=== PATIENT | female | born 1945 | race Caucasian/White ===

== ENCOUNTER 2021-12-24 19:32 | Inpatient (IN) | payer MEDICARE, OTHER ==
[~2021-12-24] VITALS: Ht 157.5 cm; Wt 89.4 kg
--- NOTE | 2021-12-24 19:53 | NUR ---
BIBPA FOR C/O FAILURE TO THRIVE AND NOT EATING X3 DAYS. PT AXO X0 BREATHING UNLABORED. CHANGED INTO GOWN AND PLACED ON MO NITOR AND V/S WNL. WAS AT BEDSIDE FOR EVAL.
--- NOTE | 2021-12-24 19:54 | NUR ---
XRAY AT BEDSIDE
--- NOTE | 2021-12-24 19:56 | NUR ---
20G IV LINE ESTABLISHED AT . BLOOD DRAWN AND SENT TO LAB.
[2021-12-24] MEDS ORDERED: IV NS 0.9% 1,000 ML BAG IV ONE (20:00)
[2021-12-24 20:16] LABS: BASOPHILS # (AUTO) 0.1 K/uL (0.0-0.2); BASOPHILS % (AUTO) 0.6 % (0.0-2.0); EOSINOPHILS % (AUTO) 0.1 % (0.0-6.0); HEMATOCRIT 48 % (33-45); HEMOGLOBIN 15.7 g/dL (11.5-14.8); LYMPHOCYTES # (AUTO) 2.5 K/uL (0.8-4.8); LYMPHOCYTES % (AUTO) 11.7 % (20.0-44.0); MEAN CORPUSCULAR HGB CONC 33 g/dl (31.0-36.0); MEAN CORPUSCULAR VOLUME 96 fL (82-100); MONOCYTES % (AUTO) 9.6 % (2.0-12.0); NEUTROPHILS # (AUTO) 16.3 K/uL (1.8-8.9); PLATELET COUNT (AUTO) 356 K/uL (150-450); RED BLOOD CELL COUNT(AUTO) 4.97 MIL/uL (4.0-5.2); WHITE BLOOD COUNT (AUTO) 20.9 K/uL (4.3-11.0)
--- NOTE | 2021-12-24 20:16 | NUR ---
URINE COLLECTED AND SENT TO LAB
[2021-12-24 20:28] LABS: CALCIUM, SERUM 8.8 mg/dL (8.5-10.1); CARBON DIOXIDE 28 mmol/L (21-32); CHLORIDE 112 mmol/L (98-107); CREATININE 0.9 mg/dL (0.6-1.3); GLUCOSE 150 mg/dL (74-106); SODIUM SERUM 152 mmol/L (136-145); UREA NITROGEN, BLOOD 26 mg/dL (7-18)
[2021-12-24 20:33] LABS: ALANINE AMINOTRANSFERASE 40 U/L (12-78); ALBUMIN 3.2 g/dL (3.4-5.0); ALKALINE PHOSPHATASE 129 U/L (46-116); ASPARTATE AMINOTRANSFERASE 40 U/L (15-37); BILIRUBIN,DIRECT 0.1 mg/dL (0.0-0.2); BILIRUBIN,TOTAL 0.4 mg/dL (0.2-1.0)
[2021-12-24 21:03] LABS: BILIRUBIN,URINE SMALL (NEGATIVE); COLOR,URINE YELLOW (YELLOW); LEUKOCYTE ESTERASE ,URINE NEGATIVE (NEGATIVE); NITRITE, URINE NEGATIVE (NEGATIVE); PH,URINE 5.5 (5.0-8.0); PROTEIN,URINE TRACE mg/dl (NEGATIVE); UGLUCOSE NEGATIVE (NEGATIVE); UROBILINOGEN,URINE 0.2 EU/dL (0.2)
--- NOTE | 2021-12-24 21:39 | NUR ---
CALLED NEELIMA PAGED YINKA VIVAS
[2021-12-24] MEDS ORDERED: CEFTRIAXONE 1GM BAG (ER ONLY) 50 ML IV ONE ×2 (21:57→22:00)
[2021-12-24 22:13] LABS: BACTERIA,URINE 1+ /HPF (None Seen); SQUAMOUS EPITHELIAL CELL,UR 21-50 /HPF (None Seen); WBC,URINE 0-2 /HPF (0-3)
--- NOTE | 2021-12-24 22:33 | NUR ---
REPORT GIVEN TO JUAN TOSCANO
--- NOTE | 2021-12-24 22:34 | NUR ---
PATIENT BEING TRANSFERRED TO [facility]
--- NOTE | 2021-12-24 22:40 | NUR ---
trouble lineman notes Received Pt from ER nurse. Pt arrived at the unit accompanied by Pt's son Dave ([phone]). Pt is non verbal and able to open eyes. On 1 L NC. No SOB. No S/S of distress noted. VS is stable. IV site at RFA # 20 is clean, intact and flushes easily. Skin assessment is done and performed. Pictures are taken and placed in Pt's chart. Pt's belonging is checked by HEATHER Mcknight and signed by Pt's son. Pt does not have any belonging. Safety precautions is maintained. Bed at low position, brakes locked, side rails upX3, hob elevated, bed alarm is on and call light is within reach. Will continue to monitor.
[2021-12-24 23:00] VITALS: BP 116/83
--- NOTE | 2021-12-24 23:38 | NUR ---
RN notes Called [facility] ([phone]) and spoke with Junior regarding covid vaccination status. Junior stated Pt is fully vaccination Moderna with booster. Pt also received PNA and flu vaccination.
[2021-12-25] VITALS: BP 119/68
[2021-12-25] MEDS ORDERED: ONDANSETRON HCL/PF 4 MG/2 ML VIAL IVP PRN (00:30)
[2021-12-25] MEDS ORDERED: NA PHOS,M-B/NA PHOS,DI-BA 1 EA ENEMA RC PRN (00:30)
[2021-12-25] MEDS ORDERED: ACETAMINOPHEN 325 MG TABLET PO PRN (00:30)
[2021-12-25] MEDS: SENNOSIDES 8.6 MG TABLET PO SCH ×2 (00:30→22:00)
[2021-12-25] MEDS ORDERED: Z GUARD REMEDY 4 OZ OINT TP PRN (00:30)
[2021-12-25] MEDS: POLYETHYLENE GLYCOL 3350 17 GM POWD.PACK PO SCH ×2 (00:30→22:00)
--- NOTE | 2021-12-25 00:53 | NUR ---
RN notes Held rachel and sarina. Pt is not following commands. Pt failed nursing bedside eval. High risk for aspiration. Charge nurse is aware and informed.
[2021-12-25] MEDS: IV LR 1000 ML 1,000 ML IV PRN ×2 (00:55→18:17)
[2021-12-25] MEDS ORDERED: DOXYCYCLINE 100 MG in IV D5W 100 ML IV ONE (01:00)
[2021-12-25] MEDS ORDERED: DOXYCYCLINE 100 MG VIAL ONE (01:21)
--- NOTE | 2021-12-25 01:44 | NUR ---
RN notes Received doxycycline 100mg from [facility]. JUAN Garcia.
[2021-12-25 06:36] LABS: BASOPHILS # (AUTO) 0.1 K/uL (0.0-0.2); BASOPHILS % (AUTO) 0.3 % (0.0-2.0); EOSINOPHILS % (AUTO) 0.2 % (0.0-6.0); HEMATOCRIT 46 % (33-45); HEMOGLOBIN 15.1 g/dL (11.5-14.8); LYMPHOCYTES # (AUTO) 2.7 K/uL (0.8-4.8); LYMPHOCYTES % (AUTO) 13.8 % (20.0-44.0); MEAN CORPUSCULAR HGB CONC 33 g/dl (31.0-36.0); MEAN CORPUSCULAR VOLUME 97 fL (82-100); MONOCYTES # (AUTO) 1.7 K/uL (0.1-1.30); MONOCYTES % (AUTO) 8.7 % (2.0-12.0); NEUTROPHILS # (AUTO) 15.1 K/uL (1.8-8.9); PLATELET COUNT (AUTO) 293 K/uL (150-450); RED BLOOD CELL COUNT(AUTO) 4.78 MIL/uL (4.0-5.2); WHITE BLOOD COUNT (AUTO) 19.6 K/uL (4.3-11.0)
--- NOTE | 2021-12-25 06:37 | NUR ---
RN closing notes Pt is resting in bed comfortably. Pt is alert and orientedX1. On 1 L NC. No SOB. No S/S of distress noted. VS is stable. IV site at RFA # 20 is clean, intact and infusing well LR @ 80 ml/hr. Routine meds were given as ordered. Kept Pt clean, dry and comfortable. All needs met and attended. Safety precautions is maintained. Bed at low position, brakes locked, side rails upX3, hob elevated, bed alarm is on and call light is within reach. Will endorse to am nurse for SHANE.
[2021-12-25 06:43] LABS: CALCIUM, SERUM 8.5 mg/dL (8.5-10.1); CREATININE 0.8 mg/dL (0.6-1.3); MAGNESIUM 2.7 mg/dL (1.8-2.4); POTASSIUM 3.7 mmol/L (3.5-5.1)
[2021-12-25 06:54] LABS: THYROID STIMULATING HORMONE 84.61 uIU/mL (0.358-3.74)
--- NOTE | 2021-12-25 07:43 | NUR ---
OPENING NOTE RECIEVED PATIENT REPORT FROM NIGHTSHIFT RN. PATIENT CURRENTLY IN BED ASLEEP BREATHING EVENLY AND UNLABORED. ON 1 LITER OF OXYGEN VIA NASAL CANULA SATURATING AT 97%. DIAPER FOR INCONTINENCE NOTED. WOUNDS ARE DOCUMENTED AND FILED IN PATIENTS PHYSICAL CHART. PER NIGHTSHIFT RN THE PATIENT IS "CLENCHING HER JAW" AND NOT ALLOWING ANY PO MEDICATIONS TO BE ADMINISTERED. IN ADDITION THE PATIENT "HAS NO GAG REFLEX", PER NIGHTSHIFT RN. IV ACCESS NOTED ON RIGHT FOREARM 20 GAUGE FLUSHING EASILY WITH NO RESISTANCE. SAFETY MEASURES IN PLACE, BED IN LOWEST POSITION, CALL LIGHT WITHIN REACH, SIDE RAILS UP, FALL RISK BRACELET ON, CALL LIGHT WITHIN REACH. WILL CONTINUE PLAN OF CARE AND ANTICIPATE NEEDS.
[2021-12-25 08:00] VITALS: BP 107/64
[2021-12-25] MEDS ORDERED: FAMO20TA8 PO (08:31)
[2021-12-25] MEDS ORDERED: THYR120T2 PO (08:31)
[2021-12-25] MEDS ORDERED: SIMV-46 PO (08:31)
[2021-12-25] MEDS: ENOXAPARIN SODIUM 40 MG/0.4 ML DISP.SYRIN SQ SCH (08:39)
[2021-12-25] MEDS: ASPIRIN EC 81 MG TABLET.DR PO SCH (08:47)
[2021-12-25] MEDS ORDERED: MELA5TAB PO (09:11)
[2021-12-25] MEDS ORDERED: SENN-175 PO (09:11)
[2021-12-25] MEDS ORDERED: POLY17PO4 PO (09:11)
[2021-12-25] MEDS: DOXYCYCLINE 100 MG in IV D5W 100 ML IV SCH ×2 (11:15→21:23)
[2021-12-25 16:00] VITALS: BP 114/68
--- NOTE | 2021-12-25 18:56 | NUR ---
CLOSING NOTE PATIENT CURRENTLY IN BED ASLEEP BREATHING EVENLY AND UNLABORED. ON 1 LITER OF OXYGEN VIA NASAL CANULA SATURATING AT 97%. DIAPER FOR INCONTINENCE NOTED. WOUNDS ARE DOCUMENTED AND FILED IN PATIENTS PHYSICAL CHART. IV ACCESS NOTED ON RIGHT FOREARM 20 GAUGE FLUSHING EASILY WITH NO RESISTANCE CURRENTLY RUNNING LACTATED RINGERS SOLUTION. SAFETY MEASURES IN PLACE, BED IN LOWEST POSITION, CALL LIGHT WITHIN REACH, SIDE RAILS UP, FALL RISK BRACELET ON, CALL LIGHT WITHIN REACH. WILL ENDORSE TO NIGHTSHIFT RN FOR CONTINUATION OF CARE.
--- NOTE | 2021-12-25 19:59 | NUR ---
RN OPENING NOTE PATIENT ASLEEP IN BED. A/OX1. NO S/S OF DISTRESS, BREATHING W/O DIFFICULTY ON 1L NC. JUVE #20 INTACT AND PATENT LR @80ML/HR. SAFETY MEASURES IN PLACE: BED LOCKED, AT LOWEST POSITION, RAILS UP X3, CALL NAVARRETE WITHIN REACH. WILL CONTINUE TO MONITOR PATIENT.
[2021-12-25 20:00] VITALS: BP 113/71
[2021-12-25] MEDS: CEFTRIAXONE 1 G in IV D5W 50 ML IV SCH (22:32)
--- NOTE | 2021-12-26 06:46 | NUR ---
RN CLOSING NOTE PATIENT AWAKE IN BED. A/OX2. NO S/S OF DISTRESS, BREATHING W/O DIFFICULTY ON 1L NC. RFA #20 INTACT AND PATENT W/ LR 80 ML/HR. SAFETY MEASURES IN PLACE: BED LOCKED, AT LOWEST POSITION, RAILS UP X3, CALL NAVARRETE WITHIN REACH. WILL ENDORSE TO NEXT SHIFT FOR SHANE.
[2021-12-26] MEDS: IV LR 1000 ML 1,000 ML IV PRN ×2 (06:53→21:42)
[2021-12-26 07:52] LABS: BASOPHILS # (AUTO) 0.1 K/uL (0.0-0.2); BASOPHILS % (AUTO) 0.4 % (0.0-2.0); EOSINOPHILS % (AUTO) 1.7 % (0.0-6.0); HEMATOCRIT 41 % (33-45); HEMOGLOBIN 13.3 g/dL (11.5-14.8); LYMPHOCYTES # (AUTO) 2.7 K/uL (0.8-4.8); LYMPHOCYTES % (AUTO) 19.4 % (20.0-44.0); MEAN CORPUSCULAR HGB CONC 33 g/dl (31.0-36.0); MEAN CORPUSCULAR VOLUME 96 fL (82-100); MONOCYTES # (AUTO) 1.1 K/uL (0.1-1.30); MONOCYTES % (AUTO) 8.1 % (2.0-12.0); NEUTROPHILS % (AUTO) 70.4 % (43.0-81.0); PLATELET COUNT (AUTO) 255 K/uL (150-450); RED BLOOD CELL COUNT(AUTO) 4.24 MIL/uL (4.0-5.2); WHITE BLOOD COUNT (AUTO) 14.2 K/uL (4.3-11.0)
--- NOTE | 2021-12-26 07:58 | NUR ---
MS RN OPENING NOTES RECEIVED PATIENT AWAKE IN BED. PATIENT IS A/OX1 , NON VERBAL. NO SOB NOTED. ON 1L NC. TOLERATING WELL. BREATHING EVEN AND UNLABORED.JUVE IV ACCESS #20 INTACT AND PATENT AND RUNNING LR @80ML/HR.ALL SAFETY MEASURES IN PLACE: BED LOCKED, AT LOWEST POSITION, RAILS UP X3, CALL NAVARRETE WITHIN REACH. WILL CONTINUE TO MONITOR PATIENT.
[2021-12-26 08:05] LABS: CALCIUM, SERUM 7.9 mg/dL (8.5-10.1); CREATININE 0.6 mg/dL (0.6-1.3); MAGNESIUM 2.5 mg/dL (1.8-2.4); POTASSIUM 3.5 mmol/L (3.5-5.1)
[2021-12-26] MEDS: ASPIRIN EC 81 MG TABLET.DR PO SCH (09:00)
[2021-12-26] MEDS: ENOXAPARIN SODIUM 40 MG/0.4 ML DISP.SYRIN SQ SCH (09:27)
[2021-12-26] MEDS: DOXYCYCLINE 100 MG in IV D5W 100 ML IV SCH ×2 (09:41→21:16)
[2021-12-26] MEDS ORDERED: NEUTRA PHOS 1 POWD.PACKET PO ONE (12:00)
[2021-12-26] MEDS: LEVOTHYROXINE INJ 100 MCG VIAL IV SCH (12:23)
--- NOTE | 2021-12-26 19:02 | NUR ---
MS RN CLOSING NOTES PATIENT AWAKE IN BED. PATIENT IS A/OX1 , NON VERBAL. FEW WORDS SPOKEN. SON AT HER BED SIDE.NO SOB NOTED. ON 1L NC. TOLERATING WELL. BREATHING EVEN AND UNLABORED. LEFT HAND IV G# 22 INTACT AND PATENT AND RUNNING LR @80ML/HR. ALL DUE MEDS GIVEN ORDERED. EXCEPT PO ASPIRIN FOR 0900 AM.SON AT HER BED SIDE. ORAL CARE GIVEN 3 TIMES. SON FED THE PATIENT WITH COUPLE OF SPOONS. LIQUID GIVEN WITH SMALL CUPS. TURN AND REPOSITION FOR SKIN MANAGEMENT. DVT PUMP AND BED PUMP ON AND WORKING. ALL SAFETY MEASURES IN PLACE: BED LOCKED, AT LOWEST POSITION, RAILS UP X3, CALL NAVARRETE WITHIN REACH. WILL ENDORSE FOR SHANE.
[2021-12-26 20:00] VITALS: BP 101/50
--- NOTE | 2021-12-26 20:15 | NUR ---
RN CLOSING NOTE PATIENT AWAKE IN BED. A/OX1. NO S/S OF DISTRESS, BREATHING W/O DIFFICULTY ON 1L NC. L-HAND #22 SL INTACT AND PATENT W/ LR 80ML/HR. SAFETY MEASURES IN PLACE: BED LOCKED IN LOWEST POSITION, RAILS UPX2, CALL NAVARRETE WITHIN REACH. WILL CONTINUE TO MONITOR PATIENT.
[2021-12-26] MEDS: POLYETHYLENE GLYCOL 3350 17 GM POWD.PACK PO SCH (22:00)
[2021-12-26] MEDS: SENNOSIDES 8.6 MG TABLET PO SCH (22:00)
[2021-12-26] MEDS: CEFTRIAXONE 1 G in IV D5W 50 ML IV SCH (22:41)
--- NOTE | 2021-12-27 03:54 | NUR ---
RN NOTE WHILE AIDING SECURED ENTRANCE MONITOR IN CLEANING PATIENT AND ATTENDING TO WOUNDS/SKIN ISSUES, THIS RN ATTEMPTED TO PROVIDE ORAL CARE. PATIENT WAS GRINDING DOWN HER TEETH AND MOVING HER HEAD IN REFUSAL OF ORAL CARE. ATTEMPTED TO EDUCATE PATIENT, BUT PATIENT CONTINUED TO REFUSE. WILL ENDORSE TO DAY SHIFT TO SEE IF PATIENT MIGHT BE MORE COMPLIANT AT THAT TIME. PATIENT STABLE; WILL CONTINUE TO MONITOR.
--- NOTE | 2021-12-27 06:24 | NUR ---
RN CLOSING NOTE PATIENT ASLEEP IN BED. A/OX1. NO S/S OF DISTRESS, BREATHING W/O DIFFICULTY ON 1L NC. L-HAND #22 INTACT AND PATENT W/ LR 80ML/HR. SAFETY MEASURES IN PLACE: BED LOCKED IN LOWEST POSITION, RAILS UPX2, CALL NAVARRETE WITHIN REACH. WILL CONTINUE TO MONITOR PATIENT.
[2021-12-27 07:25] LABS: BASOPHILS % (AUTO) 0.3 % (0.0-2.0); EOSINOPHILS % (AUTO) 2.1 % (0.0-6.0); HEMATOCRIT 38 % (33-45); HEMOGLOBIN 12.6 g/dL (11.5-14.8); LYMPHOCYTES # (AUTO) 2.7 K/uL (0.8-4.8); MEAN CORPUSCULAR HGB CONC 33 g/dl (31.0-36.0); MEAN CORPUSCULAR VOLUME 96 fL (82-100); NEUTROPHILS # (AUTO) 7.2 K/uL (1.8-8.9); NEUTROPHILS % (AUTO) 64.6 % (43.0-81.0); PLATELET COUNT (AUTO) 242 K/uL (150-450); RED BLOOD CELL COUNT(AUTO) 3.99 MIL/uL (4.0-5.2); WHITE BLOOD COUNT (AUTO) 11.1 K/uL (4.3-11.0)
[2021-12-27 07:32] LABS: CALCIUM, SERUM 7.7 mg/dL (8.5-10.1); CARBON DIOXIDE 27 mmol/L (21-32); CHLORIDE 111 mmol/L (98-107); CREATININE 0.5 mg/dL (0.6-1.3); GLUCOSE 89 mg/dL (74-106); MAGNESIUM 2.2 mg/dL (1.8-2.4); PHOSPHORUS 1.7 mg/dL (2.5-4.9); POTASSIUM 3.1 mmol/L (3.5-5.1); SODIUM SERUM 144 mmol/L (136-145); UREA NITROGEN, BLOOD 11 mg/dL (7-18)
[2021-12-27 08:00] VITALS: BP 124/59
--- NOTE | 2021-12-27 08:00 | NUR ---
RN OPENING NOTE PATIENT AWAKE IN BED RESTING. A/O X1. NO S/S OF PAIN NOTED AT THIS TIME. ON ROOM AIR, NO DISTRESS OR SHORTNESS OF BREATH NOTED. IV ACCESS L HAND #22G, INTACT, PATENT AND FLUSHING WELL. FALL AND SAFETY MEASURES IN PLACE, BED ALARM ON, BED IN LOW AND LOCK POSITION, CALL LIGHT AND TABLE WITHIN EASY REACH, SIDE RAILS UP X2. WILL CONTINUE TO MONITOR.
[2021-12-27] MEDS: ENOXAPARIN SODIUM 40 MG/0.4 ML DISP.SYRIN SQ SCH (10:10)
[2021-12-27] MEDS: ASPIRIN EC 81 MG TABLET.DR PO SCH (10:11)
[2021-12-27] MEDS: LEVOTHYROXINE INJ 100 MCG VIAL IV SCH (10:12)
[2021-12-27] MEDS: DOXYCYCLINE 100 MG in IV D5W 100 ML IV SCH (10:12)
[2021-12-27] MEDS: POTASSIUM CHLORIDE 20 MEQ POWDER PACKET PO SCH ×2 (13:04→14:08)
[2021-12-27] MEDS: IV LR 1000 ML 1,000 ML IV PRN (13:45)
[2021-12-27 16:00] VITALS: BP 129/78
[2021-12-27] MEDS ORDERED: K PHOS NEUTRAL 250 MG TABLET PO ONE (16:30)
--- NOTE | 2021-12-27 19:30 | NUR ---
MS RN OPENING NOTE RECEIVED PATIENT IN BED; AWAKE, ALERT AND ORIENTED X1. ON ROOM AIR; TOLERATING WELL. BREATHING IS EVEN AND NONLABORED. NOT IN ANY FORM OF RESPIRATORY DISTRESS. WITH IV ACCESS ON LEFT HAND; PATENT AND INTACT INFUSING WITH LR 1L REGULATED @ 80ML/HR; FLUSHES WELL. NEEDS ANTICIPATED AND ATTENDED TO. SAFETY AND ASPIRATION PRECAUTIONS IMPLEMENTED: HEAD OF BED ELEVATED, CALL LIGHT AND TABLE WITHIN REACH, SIDE RAILS UP X3, BED IN LOWEST LOCKED POSITION. WILL CONTINUE TO MONITOR
--- NOTE | 2021-12-27 19:49 | NUR ---
RN CLOSING NOTE PATIENT AWAKE IN BED RESTING. A/O X1. NO S/S OF PAIN NOTED AT THIS TIME. ON ROOM AIR, NO DISTRESS OR SHORTNESS OF BREATH NOTED. IV ACCESS L HAND #22G, INTACT, PATENT AND FLUSHING WELL. SCHEDULE MEDICATIONS GIVEN, CRUSH MIXED IN JUICE OR WATER. FALL AND SAFETY MEASURES IN PLACE, BED ALARM ON, BED IN LOW AND LOCK POSITION, CALL LIGHT AND TABLE WITHIN EASY REACH, SIDE RAILS UP X2. WILL ENDORSE TO FOOD GENERAL MANAGER.
[2021-12-27 20:06] VITALS: BP 122/66
[2021-12-27] MEDS: SENNOSIDES 8.6 MG TABLET PO SCH (22:28)
[2021-12-27] MEDS: POLYETHYLENE GLYCOL 3350 17 GM POWD.PACK PO SCH (22:28)
[2021-12-28] MEDS: IV LR 1000 ML 1,000 ML IV PRN (02:10)
[2021-12-28 06:26] LABS: BASOPHILS % (AUTO) 0.3 % (0.0-2.0); HEMATOCRIT 40 % (33-45); HEMOGLOBIN 13.1 g/dL (11.5-14.8); LYMPHOCYTES % (AUTO) 25.9 % (20.0-44.0); MEAN CORPUSCULAR HGB CONC 33 g/dl (31.0-36.0); MEAN CORPUSCULAR VOLUME 95 fL (82-100); MONOCYTES # (AUTO) 0.9 K/uL (0.1-1.30); MONOCYTES % (AUTO) 7.4 % (2.0-12.0); NEUTROPHILS # (AUTO) 7.5 K/uL (1.8-8.9); NEUTROPHILS % (AUTO) 64.4 % (43.0-81.0); PLATELET COUNT (AUTO) 226 K/uL (150-450); RED BLOOD CELL COUNT(AUTO) 4.15 MIL/uL (4.0-5.2); WHITE BLOOD COUNT (AUTO) 11.6 K/uL (4.3-11.0)
[2021-12-28 06:53] LABS: CALCIUM, SERUM 7.9 mg/dL (8.5-10.1); CARBON DIOXIDE 28 mmol/L (21-32); CHLORIDE 108 mmol/L (98-107); CREATININE 0.6 mg/dL (0.6-1.3); GLUCOSE 82 mg/dL (74-106); POTASSIUM 3.8 mmol/L (3.5-5.1); SODIUM SERUM 140 mmol/L (136-145); UREA NITROGEN, BLOOD 8 mg/dL (7-18)
--- NOTE | 2021-12-28 07:10 | NUR ---
MS RN CLOSING NOTE PATIENT RESTING COMFORTABLY IN BED; AWAKE, ALERT AND ORIENTED X1. STABLE ON ROOM AIR. BREATHING EVEN AND NONLABORED. IN NO ACUTE DISTRESS NOTED. WITH IV ACCESS ON LEFT HAND; PATENT AND INTACT INFUSING WITH LR 1L REGULATED @ 80ML/HR; FLUSHES WELL. SAFETY AND ASPIRATION PRECAUTIONS IN PLACE: HEAD OF BED ELEVATED, CALL LIGHT AND TABLE WITHIN REACH, SIDE RAILS UP X3, BED IN LOWEST LOCKED POSITION. ENDORSED TO MORNING SHIFT FOR SHANE.
--- NOTE | 2021-12-28 07:20 | NUR ---
MS RN OPENING NOTES PATIENT RESTING COMFORTABLY IN BED; AWAKE. PATIENT NONVERBAL AND UNABLE TO ASSESS ACCURATE MENTAL STATUS. LANGUAGE BARRIER POSSIBLE. STABLE ON ROOM AIR. BREATHING EVEN AND NONLABORED. IN NO ACUTE DISTRESS NOTED. IV ACCESS ON LEFT HAND; PATENT AND INTACT INFUSING WITH LR 1L REGULATED @ 80ML/HR; FLUSHES WELL. SAFETY AND ASPIRATION PRECAUTIONS IN PLACE: HEAD OF BED ELEVATED, CALL LIGHT AND TABLE WITHIN REACH, SIDE RAILS UP X3, BED IN LOWEST LOCKED POSITION. WILL CONTINUE PLAN OF CARE
--- NOTE | 2021-12-28 07:33 | NUR ---
WOUND CARE CONSULT: PT PRESENTS WITH MOISTURE ASSOCIATED SKIN DAMAGE TO BREASTFOLDS, SOME SCARRING/DISCOLORATION TO FEET, SCARRING TO LEFT HIP AND SCARRING TO SACRUM WITH INCONTINENCE ASSOCIATED SKIN DAMAGE OVER SCAR. PT IS INCONTINENT OF URINE AND STOOL. RECOMMENDATIONS MADE FOR SKIN PROTECTION. DISCUSSED WITH NURSING STAFF. [facility] IN AGREEMENT WITH PLAN OF CARE. Addendum: 12/28/21 at 0734 by KHANH DODSON WNDNU Amended: Links added.
--- NOTE | 2021-12-28 08:30 | NUR ---
RN NOTES PATIENT REFUSING PO INTAKE. UNABLE TO GIVE PO MEDICATIONS.
[2021-12-28] MEDS: ASPIRIN EC 81 MG TABLET.DR PO SCH ×2 (09:00→09:43)
[2021-12-28] MEDS: ENOXAPARIN SODIUM 40 MG/0.4 ML DISP.SYRIN SQ SCH (09:43)
[2021-12-28] MEDS: LEVOTHYROXINE INJ 100 MCG VIAL IV SCH (09:43)
[2021-12-28 09:53] VITALS: BP 130/68
[2021-12-28] MEDS ORDERED: Sodium Phosphate 30 MMOL in IV NS 0.9% 250 ML IV SCH (11:00)
--- NOTE | 2021-12-28 12:30 | NUR ---
RN NOTES PATIENTS SON AT BEDSIDE. PATIENT DOES BETTER WITH SONS ASSISTANCE DURING MEAL TIMES. PATIENT ATE ABOUT HALF OF LUNCH.
[2021-12-28 15:55] VITALS: BP 131/89
[2021-12-28] MEDS: ENSURE ENLIVE 237 ML LIQUID (VANILLA) PO SCH (17:00)
--- NOTE | 2021-12-28 19:00 | NUR ---
MS RN CLOSING NOTES PATIENT RESTING COMFORTABLY IN BED. STABLE ON ROOM AIR. BREATHING EVEN AND NONLABORED. NO ACUTE DISTRESS NOTED. IV ACCESS ON LEFT HAND; PATENT AND INTACT INFUSING WITH LR 1L REGULATED @ 80ML/HR. SAFETY AND ASPIRATION PRECAUTIONS IN PLACE: HEAD OF BED ELEVATED, CALL LIGHT AND TABLE WITHIN REACH, SIDE RAILS UP X3, BED IN LOWEST LOCKED POSITION. WILL ENDORSE TO THE WORKDAY SENIOR ASSOCIATE NURSE FOR SHANE
--- NOTE | 2021-12-28 19:47 | NUR ---
RN OPENING NOTES PATIENT RECEIVED RESTING IN BED COMFORTABLY; A/OX0, NON VERBAL; UNABLE TO ASSESS; BREATHING EVEN AND UNLABORED; TOLERATING ROOM AIR WELL, NO SOB NOTED; NO DISTRESS NOTED; L HAND 22G INFUSING LR @ 80ML/HR; PER AM SHIFT, PUREWICK ORDERED; SAFETY PRECAUTIONS IMPLEMENTED; BED LOCKED IN LOW POSITION; SIDE RAILSX3, CALL LIGHT WITHIN REACH; WILL CONT PLAN OF CARE Addendum: 12/29/21 at 0025 by ROMMEL MCDONOUGH RN PER CHARGE NURSE, NO PUREWICK WAS ORDERED FOR PATIENT; SPOKE WITH SPECIAL SERVICES SUPERVISOR DEDE JONES FOR SALAS CATH INSERTION FOR INCONTINENCE, PATIENT IS BED BOUND; CHARGE NURSE AWARE
[2021-12-28 20:00] VITALS: BP 113/84
[2021-12-28] MEDS: SENNOSIDES 8.6 MG TABLET PO SCH (21:24)
[2021-12-28] MEDS: POLYETHYLENE GLYCOL 3350 17 GM POWD.PACK PO SCH (21:24)
--- NOTE | 2021-12-28 21:24 | NUR ---
MS RN NOTES PATIENT ADMITTED FOR FAILURE TO THRIVE, PATIENT HAS BEEN REFUSING TO EAT AND DRINK MEDICATION; PATIENT A/OX0 NON-VERBAL; PER AM SHIFT, ONLY EATS WHEN SON IS HERE; BUT STILL HAS TROUBLE; CHARGE NURSE AWARE; WILL CONT PLAN OF CARE
[2021-12-29] MEDS: IV LR 1000 ML 1,000 ML IV PRN (00:01)
--- NOTE | 2021-12-29 00:18 | NUR ---
MS RN NOTES PATIENT IV SITE DISLODGED. IV REMOVED, TIP INTACT; WILL ATTEMPT TO RE-ESTABLISH IV ACCESS; PER MASTER FIRE CONTROL TECHNICIAN ELAINE JONES FOR SALAS CATH; CHARGE NURSE AWARE;
--- NOTE | 2021-12-29 02:17 | NUR ---
MS RN NOTE R AC #20G IV SITE ESTABLISHED; SALAS CATH 16FR INSERTED, YELLOW OUTPUT NOTED; CHARGE NURSE AWARE
--- NOTE | 2021-12-29 06:57 | NUR ---
MS RN CLOSING NOTES PATIENT RECEIVED RESTING IN BED COMFORTABLY; A/OX0, MUMBLES; BREATHING EVEN AND UNLABORED; TOLERATING ROOM AIR WELL, NO SOB NOTED; NO DISTRESS NOTED; R AC #20G INFUSING LR @ 80ML/HR; SALAS CATH PRESENT WITH YELLOW OUTPUT NOTED; ALL NEEDS RENDERED; SAFETY PRECAUTIONS IMPLEMENTED; BED LOCKED IN LOW POSITION; SIDE RAILSX3, CALL LIGHT WITHIN REACH; WILL ENDORSE SHANE TO ONCOMING SHIFT
--- NOTE | 2021-12-29 07:25 | NUR ---
MS RN OPENING NOTES PATIENT RESTING IN BED COMFORTABLY, A/OX0, MUMBLES. SPEAKS ANOTHER LANGUAGE. BREATHING EVEN AND UNLABORED ON RA. NO DISTRESS NOTED. R AC #20G INFUSING LR @ 80ML/HR; SALAS CATH PRESENT WITH CLEAR YELLOW URINE NOTED. SAFETY PRECAUTIONS IMPLEMENTED, BED LOCKED IN LOW POSITION, SIDE RAILSX3, CALL LIGHT WITHIN REACH. WILL CONTINUE TO MONITOR
--- NOTE | 2021-12-29 07:40 | NUR ---
RN NOTES PER DR ANTHONY, PATIENT TO BE NPO FOR POSSIBLE EGD TODAY BY DR NAIDU. WILL CARRY OUT ORDERS.
[2021-12-29 08:00] VITALS: BP 127/72
[2021-12-29] MEDS: ENSURE ENLIVE 237 ML LIQUID (VANILLA) PO SCH ×2 (08:00→17:00)
[2021-12-29] MEDS: ASPIRIN EC 81 MG TABLET.DR PO SCH (08:07)
[2021-12-29] MEDS: ENOXAPARIN SODIUM 40 MG/0.4 ML DISP.SYRIN SQ SCH (08:07)
[2021-12-29] MEDS: LEVOTHYROXINE INJ 100 MCG VIAL IV SCH (08:15)
--- NOTE | 2021-12-29 19:10 | NUR ---
RN NOTE PT TAKEN DOWN VIA BED FOR EGD AT THIS TIME. PT STABLE WITH NO S/S OF DISTRESS AT THIS TIME. CHARGE NURSE PAUL SOFIA.
[2021-12-29] MEDS ORDERED: PROPOFOL 20 ML IV ONE (19:22)
[2021-12-29] MEDS ORDERED: MIDAZOLAM HCL 2 MG/2ML VIAL ONE (19:22)
--- NOTE | 2021-12-29 19:29 | NUR ---
RN NOTES ENDORSED REPORT TO SUBMERSIBLE PILOT NURSE FOR SHANE
--- NOTE | 2021-12-29 20:19 | NUR ---
MS RN OPENING NOTE PT RETURNED FROM EDG WITH DR NAIDU AT THIS TIME. A/O X1. PT STABLE ON ROOM AIR, SATURATING @ 98%. NO SOB OR S/S OF RESPIRATORY DISTRESS. BREATHING EVEN AND UNLABORED. IV ACCESS RAC 20 GAUGE RUNNING LR @ 80 ML/HR. WITH SALAS CATH DRAINING YELLOW COLORED URINE. SAFETY PRECAUTIONS IN PLACE. BED IN LOWEST LOCKED POSITION, HOB ELEVATED, SIDE RAILS UP X3, BED ALARM ON, AND CALL LIGHT AND TABLE WITHIN REACH. ALL NEEDS MET AT THIS TIME.
[2021-12-29] MEDS: PANTOPRAZOLE 40 MG VIAL IV SCH (20:30)
--- NOTE | 2021-12-29 20:54 | NUR ---
RN NOTE PER COMMISSIONER CONSERVATION OF RESOURCES TREMAINE, CHANGE DIET ORDER FROM NPO TO CLEAR LIQUID. NOTED AND CARRIED OUT.
[2021-12-29] MEDS: POLYETHYLENE GLYCOL 3350 17 GM POWD.PACK PO SCH (21:46)
[2021-12-29] MEDS: SENNOSIDES 8.6 MG TABLET PO SCH (21:46)
--- NOTE | 2021-12-29 21:46 | NUR ---
RN NOTE PT REFUSING TO OPEN MOUTH. UNABLE TO ADMINISTER ANY MEDICATION AT THIS TIME. CHARGE NURSE PAUL SOFIA.
[2021-12-30] MEDS: IV LR 1000 ML 1,000 ML IV PRN (03:31)
--- NOTE | 2021-12-30 06:47 | NUR ---
MS RN CLOSING NOTE PT AWAKE IN BED. A/O X1. PT STABLE ON ROOM AIR, SATURATING @ 98%. NO SOB OR S/S OF RESPIRATORY DISTRESS. BREATHING EVEN AND UNLABORED. IV ACCESS RAC 20 GAUGE RUNNING LR @ 80 ML/HR. WITH SALAS CATH DRAINING YELLOW COLORED URINE, DRAINED 950 ML THIS SHIFT. TURNED AND REPOSITIONED Q2H. SAFETY PRECAUTIONS IN PLACE AT ALL TIMES. BED IN LOWEST LOCKED POSITION, HOB ELEVATED, SIDE RAILS UP X3, BED ALARM ON, AND CALL LIGHT AND TABLE WITHIN REACH. ALL NEEDS MET AT THIS TIME AND WILL ENDORSE TO ONCOMING NURSE FOR SHANE.
--- NOTE | 2021-12-30 07:44 | NUR ---
MS RN OPENING NOTE RECEIVED PT IN BED ASLEEP, EASILY AROUSED. A/O X1, REORIENTED PT NEEDED. ON RA, TOLERATING WELL. BREATHING EVEN AND UNLABORED. NOT IN ANY SIGN OF RESPIRATORY DISTRESS. IV ACCESS IN RAC G#20 INTACT AND PATENT WITH LR INFUSING AT 80ML/HR. SAFETY MEASURES IN PLACE: BED IN LOWEST AND LOCKED POSITION, SIDE RAILS UP X2, AND CALL LIGHT WITHIN REACH. WILL CONTINUE TO MONITOR PT.
[2021-12-30] MEDS: LEVOTHYROXINE INJ 100 MCG VIAL IV SCH (07:56)
[2021-12-30 08:00] VITALS: BP 124/68
[2021-12-30] MEDS: ENSURE ENLIVE 237 ML LIQUID (VANILLA) PO SCH ×2 (08:00→17:00)
[2021-12-30] MEDS: ASPIRIN EC 81 MG TABLET.DR PO SCH (08:21)
[2021-12-30] MEDS: PANTOPRAZOLE 40 MG VIAL IV SCH (08:23)
[2021-12-30] MEDS: ENOXAPARIN SODIUM 40 MG/0.4 ML DISP.SYRIN SQ SCH (08:24)
[2021-12-30] MEDS ORDERED: Aspirin Ec PO (11:23)
--- NOTE | 2021-12-30 18:13 | NUR ---
SCREEN MAKER NOTES PT DISCHARGED TO [facility] IN STABLE CONDITION. PT A/O X1, REORIENTED PT NEEDED. PT'S SON IS AT BEDSIDE. ON RA, TOLERATING WELL WITH SPO2 96%. BREATHING EVEN AND UNLABORED. NOT IN ANY SIGN OF RESPIRATORY DISTRESS. VITAL SIGNS TAKEN, STABLE, AND RECORDED. PHOTOGRAPHS OF SKIN ISSUES TAKEN AND FILED IN THE CHART. PT HAS NO BELONGINGS. DISCHARGED INSTRUCTIONS AND HEALTH TEACHINGS GIVEN TO PT'S SON AND VERBALIZED UNDERSTANDING. IV ACCESS IN RAC G #20 REMOVED WITH NO ACTIVE BLEEDING NOTED. DRY PRESSURE DRESSING APPLIED AT SITE. SALAS CATH ALSO REMOVED. CALLED AND REPORT GIVEN EARLIER TO JUAN VASQUEZ OF [facility]. PT LEFT UNIT VIA GURNEY AT 1810 ACCOMPANIED BY 2 OUTPATIENT SCHEDULER. MD AND CHARGED NURSE AWARE OF DISCHARGED.
== END 2021-12-30 18:30 | DRG 640 ==
LOC: ER 19:37 → MED 22:22
PROVIDERS: ADMIT Student in an Organized Health Care Education/Training Program; ATTEND Internal Medicine
PROC: 0DB68ZX Excision of Stomach, Via Natural or Artificial Opening Endoscopic, Diagnostic (ICD-10-PCS; principal; 2021-12-29)
DX: E86.0 Dehydration (principal); G93.41 Metabolic encephalopathy; E44.0 Moderate protein-calorie malnutrition; E88.09 Other disorders of plasma-protein metabolism, not elsewhere classified; K29.70 Gastritis, unspecified, without bleeding; K26.9 Duodenal ulcer, unspecified as acute or chronic, without hemorrhage or perforation; Z20.822 Contact with and (suspected) exposure to COVID-19; F02.80 Dementia in other diseases classified elsewhere, unspecified severity, without behavioral disturbance, psychotic disturbance, mood disturbance, and anxiety; G30.9 Alzheimer's disease, unspecified; F25.9 Schizoaffective disorder, unspecified; F32.9 Major depressive disorder, single episode, unspecified; R94.6 Abnormal results of thyroid function studies; R79.89 Other specified abnormal findings of blood chemistry; D72.829 Elevated white blood cell count, unspecified; R74.01 Elevation of levels of liver transaminase levels; Z79.899 Other long term (current) drug therapy; E87.0 Hyperosmolality and hypernatremia; E83.39 Other disorders of phosphorus metabolism; R13.10 Dysphagia, unspecified; E87.6 Hypokalemia
CPT/HCPCS: 36415; 71045-TC; 80048-TC; 80076-TC; 81001; 83605-TC; 83735-TC; 84100-TC; 84439-TC; 84443-TC; 84484-TC; 85025-TC; 85730-TC; 87040-TC; 87081-TC; 87086-TC; 92521; 92526; 92611-TC; 94799-TC; A9563; C9113; C9803; G0378; J0696; J1650; J2250; J2370; J2704; J3490; J7030; J7050; J7060; J7120